=== PATIENT | male | born 1985 | race Caucasian/White ===

== ENCOUNTER 2019-07-18 16:23 | Emergency (ER) | payer SELFPAY ==
[2019-07-18 16:32] VITALS: BP 114/57; PULSE 123; RESP 16; TEMP 36.4; O2SAT 96
--- NOTE | 2019-07-18 16:42 | ECG_ITS ---
Measurements Intervals [place] Rate: 112 P: 11 MO: 144 QRS: 28 QRSD: 89 T: 35 QT: 311 QTc: 425 Interpretive Statements SINUS TACHYCARDIA ABNORMAL ECG Electronically Signed On 07-18-2019 18:10:29 CDT by Joey Wray D.O.
--- NOTE | 2019-07-18 16:43 | ED.CHESTPAIN ---
HPI - Chest Pain General Chief Complaint: Chest Pain Stated Complaint: chest pain/heart palpitations Time Seen by Provider: 07/18/19 16:29 Source: patient, family and RN notes reviewed Mode of arrival: ambulatory Limitations: no limitations History of Present Illness HPI narrative: Patient presents today with a sudden onset sternal chest pain, headache, nausea, shortness of breath, racing heartbeat, photophobia, and mild abdominal pain. Symptoms began 30 minutes prior to arrival. 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 When he was outside working, he had a full hooded sweatshirt on with shorts. Denies any exposure to chemicals today. Denies cardiac or respiratory history. He is a nonsmoker. Has taken 1 dose of motrin today. Patient works for [employer]. No known sick contacts. He has not been at work for 3-4 days. Related Data Home Medications Medication Instructions Recorded Confirmed No Home Medications 07/18/19 07/18/19 Allergies Allergy/AdvReac Type Severity Reaction Status Date / Time No Known Allergies Allergy Verified 07/18/19 16:31 Review of Systems Review of Systems: Narrative: CONSTITUTIONAL: Denies body aches, fever, chills, or sweats. EYES: Denies visual changes, redness, or discharge. +photophobia ENT: Denies rhinorrhea, congestion, sore throat, or otalgia. CARDIOVASCULAR: Denies edema. + Sternal chest pain, racing heartbeat RESPIRATORY: Denies cough. + Shortness of breath GASTROINTESTINAL: Denies vomiting, or diarrhea.+ Abdominal pain, nausea GENITOURINARY: Denies dysuria or hematuria. SKIN: Denies rash, itching, or wounds. MUSCULOSKELETAL: Denies back pain, joint pain, or myalgia. NEUROLOGIC: Denies numbness, tingling, or weakness.+ Headache PSYCH: Denies depression or anxiety. PMFSH Social History Social History Gender identity (if verbalized by the patient): Male Comments At time of signature, I have reviewed and agree with nursing past medical, surgical, social and family history unless otherwise noted. Please see nursing chart for further information. There is no relevant family history pertinent to the presenting complaint Exam Narrative: Exam Narrative: GENERAL: Ill-appearing, well-nourished, and in no acute distress. HEAD: Normocephalic, atraumatic. EYES: EOMI. PERRL. Bilateral severely injected conjunctiva. No drainage. ENT: Mucous membranes pink and moist. Nares clear. No rhinorrhea. TMs normal bilaterally. Throat is not swollen. Soft palate is erythematous. Uvula midline. NECK: Normal AROM. CHEST: No respiratory distress. Clear to auscultation. Chest is nontender to palpation. HEART: Regular rhythm. Tachycardia. No murmur appreciated. Normal peripheral pulses. ABDOMEN: Soft, nondistended, normal active bowel sounds. Mild tenderness to left upper abdomen without rebound or guarding. MUSCULOSKELETAL: No bony tenderness. EXTREMITIES: Normal range of motion. No edema. SKIN: Hot, dry. Capillary refill normal. Normal skin turgor. Patient's entire skin surface, except ankles and feet, are moderately erythematous, appears like a moderate sunburn, but no sun exposure today. NEURO: No focal deficits. Alert and oriented x3. Gait steady. PSYCH: Anxious Course Vital Signs Vital signs: Vital Signs Temperature 97.6 F 07/18/19 16:32 Pulse Rate 123 H 07/18/19 16:32 Respiratory Rate 16 07/18/19 16:32 Blood Pressure 114/57 L 07/18/19 16:32 Pulse Oximetry 96 07/18/19 16:32 Temperature 97.6 F 07/18/19 16:32 Pulse Rate 123 H 07/18/19 16:32 Respiratory Rate 16 07/18/19 16:32 Blood Pressure 114/57 L 07/18/19 16:32 Pulse Oximetry 96 07/18/19 16:32 Reviewed Transfer Transfered to: [facility] Transfer rationale: chest pain, shortness of breath Accepting physician: Laura Rosales PA-C MDM - Chest Pain Differential Diagnosis Differential diagnosis: Likely st elevation myocardi
--- NOTE | 2019-07-18 16:49 | PC.NURSE ---
1635: Attempted 18g IV in Lt forearm unsuccessfully.
--- NOTE | 2019-07-18 17:00 | PC.NURSE ---
at 1630 [facility] called by registration per [facility] lab technician and ekg in progress. 1635 ekg completed. 1636 em[facility] here. 1638 care transferred to [facility]. transferred to [facility]. family to go to [place] per private vehicle.
== END 2019-07-18 17:38 | disposition short-term general hospital (02) ==
PROVIDERS: Emergency Provider Nurse Practitioner; PCP Family Medicine
DX: R07.2 Precordial pain (principal); R00.0 Tachycardia, unspecified
CPT/HCPCS: 93005; 99213; G0463

== ENCOUNTER 2019-07-18 16:59 | Emergency (ER) | payer OTHER, SELFPAY ==
[2019-07-18] VITALS (15 sets, daily range): BP systolic 119–148; BP diastolic 43–96; PULSE 80–107; RESP 14–22; TEMP 37; O2SAT 97–100
--- NOTE | ~2019-07-18 | XR_ITS ---
EXAMINATION: XR chest 1V portable EXAM DATE: 07/18/2019 20:27 INDICATION: Midsternal chest pain. TECHNIQUE: Portable AP frontal chest x-ray was obtained. There is no prior study for comparison. FINDINGS: The lungs are clear. There are no pleural effusions. The cardiomediastinal silhouette is within normal limits. There is no pneumothorax suspected. The bones and soft tissues are unremarkab le. IMPRESSION: No acute cardiopulmonary findings. Reviewed, dictated and finalized at location A.
--- NOTE | 2019-07-18 17:09 | ECG_ITS ---
Measurements Intervals [place] Rate: 121 P: [place]: 0 QRS: 60 QRSD: 93 T: 58 QT: 319 QTc: 454 Interpretive Statements SINUS TACHYCARDIA BASELINE ARTIFACT- V5 ABNORMAL ECG Electronically Signed On 07-19-2019 7:08:34 CDT by Joey Wray D.O.
--- NOTE | 2019-07-18 19:42 | ED.CHESTPAIN ---
HPI - Chest Pain General Chief Complaint: Chest Pain Stated Complaint: CP Time Seen by Provider: 07/18/19 19:04 Source: patient Mode of arrival: EMS History of Present Illness HPI narrative: This patient is a 33 yo male who presents with c/o substernal chest pain starting 4 hours ago. Patient states he had been power washing concrete around 4 hours ago. He states afterwards he was riding in a car and he developed substernal chest pain , nonradiating. He states this started 30 minutes after he finished power washing. He went to and he was found to have a rash. EMS picked patient up from urgent care and he was given benadryl. Patient states his chest pain has resolved. He denies itching, lip swelling , complaint: chest heaviness Onset (ago): hour(s) (4 hours ago) Prior episodes: No Onset: during rest Pain location: substernal Pain radiation: none Treatment prior to arrival: other (benadryl) Related Data Home Medications Medication Instructions Recorded Confirmed No Home Medications 07/18/19 07/18/19 Allergies Allergy/AdvReac Type Severity Reaction Status Date / Time No Known Allergies Allergy Verified 07/18/19 16:31 Review of Systems Review of Systems: All systems reviewed & are unremarkable except as noted in HPI and below ENT: Reports dizziness, Denies hoarseness and Denies lip swelling Cardiovascular: Cardiovascular: Reports chest pain, Reports rapid heart rate and Denies radiating jaw, neck or arm pain Respiratory: Respiratory: Denies cough, Reports dyspnea and Denies wheezing Gastrointestinal: Gastrointestinal: Denies abdominal pain, Reports nausea and Denies vomiting Musculoskeletal: Musculoskeletal: Reports muscle cramps Integumentary/Breasts: Skin/Breast: Denies pruritus and Reports rash Neurologic: Reports dizziness and Reports headache(s) PMFSH Past Medical History Medical History (Updated 07/18/19 @ 23:09 by Chloe Valerio MD) Patient denies medical problems Social History Social History (Updated 07/18/19 @ 19:43 by Chloe Valerio MD) Smoking status: Never smoker Alcohol intake: current Alcohol use details: rarely Substance use: never Gender identity (if verbalized by the patient): Male Exam Narrative: Exam Narrative: GENERAL: Well-appearing, well-nourished, and in no acute distress. HEAD: Normocephalic, atraumatic EYES: PERRLA and EOMI, conjunctiva clear without discharge THROAT:Mucous membranes moist, Oropharynx normal without erythema, exudate, peritonsillar swelling or fluctuance NECK: Supple, without lymphadenopathy or mass RESPIRATORY: No respiratory distress, Airway patent, Respirations non-labored, Clear to auscultation without rales, rhonchi or wheeze HEART: Regular rate and rhythm. No murmur heard. Normal peripheral pulses. ABDOMEN: Soft, nontender, nondistended, normal active bowel sounds. No masses. No rebound or guarding, No organomegaly. EXTREMITIES: No edema, normal strength with full range of motion. SKIN: Warm, dry, normal color without rash NEURO: Alert and oriented x3. CN 2-12 grossly intact. No focal deficits. PSYCH: Normal mood and affect. Course Reevaluation(s) Reevaluation #1: PAtient has no symptoms now. I discussed troponin slightly elevated and I Recommend observation in hospital. PAtient request transfer to [facility] due to insurance and his PCP Dr. Guaman is located at [facility]. Date: 07/18/19 Time: 22:09 Reevaluation #2: I discussed with patient my conversation with Dr. Galvan and patient still wants be to try to transfer. Date: 07/18/19 Time: 22:31 Consultations Consultation #1: I spoke with Dr. Galvan neon sign mechanic for Dr. Guaman. She states patient would be admitted to hospitalist if needed. She states patient can stay at [place]. Date: 07/18/19 Time: 22:30 Consultation #2: I have spoke with Dr. Flynn, hospitalist, with [facility] who accepts patient to telemetry Date: 07/18/19 Time: 23:07
[2019-07-18 19:52] LABS: Basophils Percent Auto 0.2 % (0.2-1.2); Eosinophils Absolute Auto 0.3 K/mm3 (0-0.3); Eosinophils Percent Auto 3.2 % (0-4.4); Hematocrit 48.9 % (42.0-52.0); Hemoglobin 16.9 g/dL (14.0-18.0); Immature Granulocyte Absolute 0.02 K/mm3 (0.00-0.031); Immature Granulocyte Percent A 0.2 % (0-0.5); Lymphocytes Absolute Auto 2.21 K/mm3 (0.9-3.2); Lymphocytes Percent Auto 25.5 % (18.3-44.2); Mean Corpuscular HGB Conc 34.6 g/dl (32-36); Mean Corpuscular Hemoglobin 29.7 pg (26-34); Mean Corpuscular Volume 85.9 fl (80-100); Mean Platelet Volume 10.6 fl (7.4-10.4); Monocytes Absolute Auto 0.4 K/mm3 (0.1-0.6); Monocytes Percent Auto 4.9 % (2.6-8.5); Neutrophils Absolute Auto 5.7 K/mm3 (1.3-6.7); Platelet Count Result 263 k/mm3 (150-375); Red Blood Count 5.69 M/mm3 (4.6-6.20); Red Cell Distribution Width 13.2 % (11.5-14.5); White Blood Count 8.7 K/mm3 (4.5-10.0)
[2019-07-18 20:04] LABS: INR 1.2; Partial Thromboplastin Time 30.3 SECONDS (22.3-36.8); Prothrombin Time 15.2 Seconds (11.1-14.7)
[2019-07-18 20:05] LABS: Blood Urea Nitrogen 16 mg/dL (9-20); Calcium 10.4 mg/dL (8.4-10.2); Carbon Dioxide 27 mmol/L (22-30); Chloride 101 mmol/L (98-107); Estimated CRCL calculation 100 ml/min; Estimated Glomerular Filt Rate 59; Glucose 99 mg/dL (75-110); Potassium 3.5 mmol/L (3.4-5.0); Sodium 139 mmol/L (137-145)
[2019-07-18 20:17] LABS: Troponin I < 0.012 ng/mL (0.000-0.034)
[2019-07-18] MEDS: LACTATED RINGERS 1,000 ML 999 ML IV CONT (20:39)
[2019-07-18 21:36] LABS: Troponin I 0.046 ng/mL (0.000-0.034)
[2019-07-18] MEDS: ASPIRIN 81 MG CHEWABLE TABLET 324 MG PO (22:22)
[2019-07-19 00:58] LABS: Troponin I 0.047 ng/mL (0.000-0.034)
[2019-07-19 01:00] VITALS: BP 126/82; PULSE 66; RESP 14; TEMP 37.2; O2SAT 95
== END 2019-07-19 01:34 | disposition short-term general hospital (02) ==
PROVIDERS: Emergency Provider General Practice
DX: R07.2 Precordial pain (principal); R79.89 Other specified abnormal findings of blood chemistry; R00.0 Tachycardia, unspecified
CPT/HCPCS: 36415; 71045; 80048; 84484; 85025; 85610; 85730; 93005; 96360; 99285; A9270; J7120